=== PATIENT | female | born 1975 | race Caucasian/White ===

== ENCOUNTER 2020-04-14 07:26 | Emergency (ER) | payer OTHER ==
[~2020-04-14] VITALS: Ht 162.6 cm; Wt 63.8 kg
[2020-04-14] MEDS ORDERED: MECLIZINE CHEWABLE 25 MG TAB ONE (07:50)
[2020-04-14] MEDS ORDERED: LORazepam 1MG TABLET ONE (07:50)
[2020-04-14] MEDS ORDERED: MECLIZINE CHEWABLE 25 MG TAB PO ONE (08:00)
[2020-04-14] MEDS ORDERED: LORazepam 0.5MG TABLET PO ONE (08:00)
[2020-04-14 08:01] LABS: BASOPHILS % (AUTO) 1 % (0-1); EOSINOPHILS % (AUTO) 1 % (1-7); LYMPHOCYTES % (AUTO) 13 % (22-44); MEAN CORPUSCULAR HEMOGLOBIN 32.1 pg (27.0-34.8); MEAN CORPUSCULAR HGB CONC 33.9 g/dL (32.4-35.8); MEAN PLATELET VOLUME 8.4 fL (7.4-10.4); MONOCYTES % (AUTO) 5 % (2-9); NEUTROPHILS % (AUTO) 81 % (42-75); PLATELET COUNT 193 x10^3/uL (130-400); RED BLOOD COUNT 4.33 x10^6/uL (3.82-5.3); RED CELL DISTRIBUTION WIDTH 12.9 % (9.6-15.2)
--- NOTE | 2020-04-14 08:05 | NUR ---
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
[2020-04-14 08:07] LABS: MD NO
[2020-04-14 08:14] LABS: ANION GAP 7 mmol/L (5-15); CALCIUM 8.5 mg/dL (8.5-10.1); CHLORIDE 111 mmol/L (98-107)
[2020-04-14 08:15] LABS: ALBUMIN 3.7 g/dL (3.4-5.0); CREATININE 0.82 mg/dL (0.55-1.02)
--- NOTE | 2020-04-14 09:04 | NUR ---
PT REMAINS UPRIGHT ON GURNEY WITH EYES MOSTLY CLOSED FOR COMFORT, REPORTS VERTIGO & NAUSEA BETTER BUT WORSENS WITH MOVEMENT, NO NEEDS AT THIS TIME, CALL LIGHT WITHIN REACH.
[2020-04-14 10:16] VITALS: BP 101/58
--- NOTE | 2020-04-14 10:16 | NUR ---
Patient given discharge instructions and Rx, they have confirmed that they understand the instructions. Patient ambulatory with steady gait.
== END 2020-04-14 10:17 | disposition home or self-care (01) ==
LOC: ED 09:10
DX: H83.02 Labyrinthitis, left ear (principal); R42 Dizziness and giddiness; R11.2 Nausea with vomiting, unspecified; R00.1 Bradycardia, unspecified; R51.9 Headache, unspecified
CPT/HCPCS: 36415; 70551; 80048; 82040; 85025; 93005; 99285